=== PATIENT | female | born 1975 | race Hispanic/Latino ===

== ENCOUNTER 2016-05-12 13:08 | Emergency (ER) | payer OTHER ==
[~2016-05-12] VITALS: Ht 165.1 cm; Wt 102.4 kg
[2016-05-12 13:21] VITALS: BP 133/79
[2016-05-12] MEDS ORDERED: SYMBICORT60 INHALAT IH (16:07)
[2016-05-12] MEDS ORDERED: PREDNISONE20 MG PO (18:01)
[2016-05-12] MEDS ORDERED: LIDODERM 5% P1 PATCH TD (18:01)
== END 2016-05-12 18:36 | disposition home or self-care (01) ==
LOC: EME 13:08 → EXP 13:08
DX: S16.1XXA Strain of muscle, fascia and tendon at neck level, initial encounter (principal); S39.012A Strain of muscle, fascia and tendon of lower back, initial encounter; V49.40XA Driver injured in collision with unspecified motor vehicles in traffic accident, initial encounter; Z91.013 Allergy to seafood; Z88.6 Allergy status to analgesic agent
CPT/HCPCS: 72040; 72100; 99281; 99283; J1885; J7512